=== PATIENT | male | born 1980 | race Caucasian/White ===

== ENCOUNTER → 2017-08-28 | Outpatient (CLI) | payer SELFPAY ==
[~2017-08-28] MED LIST: FUR40 PO; PRE20 PO; TACR1CAP PO
[2017-08-28 06:27] LABS: PLATELET COUNT, AUTOMATED 284 K/uL (150-450)
== END ==
LOC: LAB 06:02
PROVIDERS: ATTEND Internal Medicine Nephrology
DX: N04.9 Nephrotic syndrome with unspecified morphologic changes (principal)
CPT/HCPCS: 36415; 80197; 82040; 82310; 82374; 82435; 82565; 82570; 82947; 84100; 84132; 84156; 84295; 84520; 85025

== ENCOUNTER → 2018-03-21 | Outpatient (CLI) | payer SELFPAY ==
[2018-03-21 05:54] LABS: LDL CHOLESTEROL 104 mg/dl
[2018-03-21 06:09] LABS: PLATELET COUNT, AUTOMATED 217 K/uL (150-450)
== END ==
LOC: LAB 05:19
PROVIDERS: ATTEND Internal Medicine Nephrology
DX: N04.9 Nephrotic syndrome with unspecified morphologic changes (principal)
CPT/HCPCS: 36415; 82040; 82310; 82374; 82435; 82465; 82565; 82570; 82947; 83718; 84100; 84132; 84156; 84295; 84478; 84520; 85025

== ENCOUNTER → 2018-06-18 | Outpatient (CLI) | payer SELFPAY ==
[2018-06-18 06:27] LABS: PLATELET COUNT, AUTOMATED 236 K/uL (150-450)
[2018-06-18 06:49] LABS: LDL CHOLESTEROL 71 mg/dl
== END ==
LOC: LAB 05:57
PROVIDERS: ATTEND Internal Medicine Nephrology
DX: N04.9 Nephrotic syndrome with unspecified morphologic changes (principal)
CPT/HCPCS: 36415; 80197; 82040; 82310; 82374; 82435; 82465; 82565; 82570; 82947; 83718; 84100; 84132; 84156; 84295; 84478; 84520; 85025

== ENCOUNTER → 2018-11-06 | Outpatient (CLI) | payer SELFPAY ==
[2018-11-06 06:42] LABS: PLATELET COUNT, AUTOMATED 222 K/uL (150-450)
== END ==
LOC: LAB 06:09
PROVIDERS: ATTEND Internal Medicine Nephrology
DX: N02.9 Recurrent and persistent hematuria with unspecified morphologic changes (principal); N04.9 Nephrotic syndrome with unspecified morphologic changes; G43.909 Migraine, unspecified, not intractable, without status migrainosus; I10 Essential (primary) hypertension
CPT/HCPCS: 36415; 80197; 81001; 82040; 82310; 82374; 82435; 82565; 82570; 82947; 83735; 84100; 84132; 84156; 84295; 84520; 85025

== ENCOUNTER → 2019-03-10 | Outpatient (CLI) | payer SELFPAY ==
[2019-03-10 07:10] LABS: PLATELET COUNT, AUTOMATED 211 K/uL (150-450)
== END ==
LOC: LAB 05:37
PROVIDERS: ATTEND Internal Medicine Nephrology
DX: N04.9 Nephrotic syndrome with unspecified morphologic changes (principal)
CPT/HCPCS: 36415; 80197; 81001; 82040; 82310; 82374; 82435; 82565; 82570; 82947; 83735; 84100; 84132; 84156; 84295; 84520; 85025